=== PATIENT | female | born 1975 | race Caucasian/White ===

== ENCOUNTER 2016-08-15 18:54 | Emergency (ER) | payer OTHER ==
[~2016-08-15] VITALS: Ht 167.6 cm; Wt 86.4 kg
[~2016-08-15 18:54] MED LIST: ACCUPRIL10 M1 PO; ASPIRIN 81M81 MG/TA2 PO; ATIVAN 0.50.5 MG/TAB PO; B COMPLEX #11 TA1 PO; CLEOCIN HC150 MG/CAP PO; COLACE 100100 MG/CAP PO; CRANBERRY FRUI405 MG PO; DOXYCYCLINE 10100 MG PO; FAT ABSORB1 CAP PO; FIBER0.52 GM PO; FLEXERIL 1010 MG/TAB PO; HEXAVITAMIN1 TA1 PO; LEVAQUIN 5500 MG/TA1 PO; MOTRIN 800800 MG/TAB PO; MULTIPLE VITAMI1 CAP PO; MULTIVITAMIN FO1 CAP PO; NAPROSYN500 MG PO; NATURAL ST. JO300 MG PO; NO HOME MEDICATIONS; NORCO 325 MG-51 TAB PO; PERCOCET 325 MG1 TA2 PO; PHARMASSURE CHE30 MG PO; PHENERGAN 25 TA25 MG PO; PHENERGAN W/CO120 ML PO; PHENERGAN25 MG RC; PREDNISONE20 MG PO; PRINZIDE 12.5 M1 TAB; PROAIR HFA0.09 MG/AC IH; PROZAC 10MG10 MG PO; PROZAC 20MG20 MG PO; PROZAC20 MG PO; PYRIDIUM200 M1 PO; SILVADENE CREAM1 TU TP; SUPER B COMPLEX1 TA2 PO; THERAGRAN1 TA1 PO; TUSS PO; TYLENOL 325MG325 MG PO; ULTRAM 50MG TAB50 MG PO; VITAMIN D 1001000 IU PO; VITAMIN D 400400 IU PO; VTAMINC250TA; XANAX .25M0.25 MG/TA PO; XANAX 0.5MG0.5 MG PO; ZANTAC 7575 MG PO; ZANTAC15 MG/ML PO; ZITHROMAX Z PA250 MG PO; ZYRTEC5 MG PO; [UNRECOGNIZED DRUG - OTHER] PO
[2016-08-15 19:12] VITALS: TEMP 98
[2016-08-15] MEDS ORDERED: NORCO 325 MG-51 TAB PO (20:37)
[2016-08-15 20:57] VITALS: BP 181/104; PULSE 97
== END 2016-08-15 20:57 | disposition home or self-care (01) ==
LOC: COL.ER 18:54
DX: S93.691A Other sprain of right foot, initial encounter (principal); X50.1XXA Overexertion from prolonged static or awkward postures, initial encounter; Y92.39 Other specified sports and athletic area as the place of occurrence of the external cause; I10 Essential (primary) hypertension

== ENCOUNTER 2016-09-12 14:34 | Emergency (ER) | payer OTHER ==
[~2016-09-12] VITALS: Ht 167.6 cm; Wt 87.7 kg
[2016-09-12 14:44] VITALS: BP 184/101; PULSE 94; TEMP 98.5
== END 2016-09-12 16:00 | disposition home or self-care (01) ==
LOC: COL.ER 14:34
DX: S61.211A Laceration without foreign body of left index finger without damage to nail, initial encounter (principal); W22.8XXA Striking against or struck by other objects, initial encounter; Y92.89 Other specified places as the place of occurrence of the external cause

== ENCOUNTER → 2017-01-24 | Outpatient (CLI) | payer OTHER ==
[2017-01-12 16:38] LABS: BASO % 0.3 % (0.0-2.0); EOS # 0.2 (0.0-0.7); EOS % 1.1 % (0-4.0); GRAN # 11.6 (1.4-6.5); GRAN % 76.6 % (42.2-75.2); HEMATOCRIT 44.2 % (37.0-47.0); HEMOGLOBIN 15.2 g/dl (12.5-16.0); LYMPH # 2.5 (1.2-3.4); LYMPH % 16.5 % (20.0-51.0); MEAN CELL VOLUME 93 fl (80.0-100.0); MEAN CORPUSCULAR HEMOGLOBIN 32 pg (27.0-31.0); MEAN CORPUSCULAR HGB CONC 34 g/dl (33.0-37.0); MEAN PLATELET VOLUME 11.6 fl (7.4-10.4); MONO # 0.8 (0.1-0.6); MONO % 5.1 % (1.7-9.3); PLATELET COUNT 296 K/mm3 (130-400); RED BLOOD COUNT 4.76 M/mm3 (4.10-5.30); WHITE BLOOD COUNT 15.1 K/mm3 (4.8-10.8)
[2017-01-12 16:43] LABS: ADJUSTED CALCIUM 9.4 mg/dL (8.4-10.2); ALBUMIN 4.5 gm/dL (3.5-5.0); BILIRUBIN,TOTAL 0.5 mg/dL (0.0-1.0); CALCIUM 9.8 mg/dL (8.4-10.2); CREATININE, serum 0.65 mg/dL (0.52-1.25); POTASSIUM 3.8 mmol/L (3.4-5.0); TOTAL PROTEIN 7.7 gm/dL (6.4-8.2)
== END ==
LOC: COL.LAB 01-12 10:01
PROVIDERS: Family Medicine
DX: E66.3 Overweight (principal); I10 Essential (primary) hypertension

== ENCOUNTER 2017-03-11 18:45 | Emergency (ER) | payer OTHER ==
[~2017-03-11] VITALS: Ht 167.6 cm; Wt 81.4 kg
[~2017-03-11 18:45] MED LIST changes: +CLINDAMYCIN150 MG PO; +NATURAL MAGNES200 MG PO; +NORCO 325 MG-7.1 TAB PO; +PERIDEX (CHLOR480 ML MM; +PRINZIDE 25 MG-1 TAB PO; +PROBIOTIC FORMU1 CAP PO; +ZYRTEC 10MG10 MG PO
[2017-03-11 19:00] VITALS: BP 134/88; TEMP 98.3
[2017-03-11 20:06] VITALS: PULSE 79
== END 2017-03-11 20:07 | disposition home or self-care (01) ==
LOC: COL.ER 18:45
DX: S50.01XA Contusion of right elbow, initial encounter (principal); Z79.82 Long term (current) use of aspirin; W22.09XA Striking against other stationary object, initial encounter; Y92.009 Unspecified place in unspecified non-institutional (private) residence as the place of occurrence of the external cause

== ENCOUNTER 2017-05-20 18:49 | Emergency (ER) | payer OTHER ==
[~2017-05-20] VITALS: Ht 167.6 cm; Wt 84.1 kg
[2017-05-20 18:52] VITALS: TEMP 97.8
[2017-05-20] MEDS ORDERED: CLEOCIN HC150 MG/CAP PO (19:58)
[2017-05-20] MEDS ORDERED: NORCO 325 MG-51 TAB PO (20:01)
[2017-05-20 20:13] VITALS: BP 159/104; PULSE 104
[2017-05-21] MEDS ORDERED: NORCO 325 MG-51 TAB PO (17:44)
== END 2017-05-20 20:19 | disposition home or self-care (01) ==
LOC: COL.ER 18:49
DX: S02.5XXA Fracture of tooth (traumatic), initial encounter for closed fracture (principal); K04.7 Periapical abscess without sinus; I10 Essential (primary) hypertension; K21.9 Gastro-esophageal reflux disease without esophagitis; F41.9 Anxiety disorder, unspecified; F17.210 Nicotine dependence, cigarettes, uncomplicated; Z79.82 Long term (current) use of aspirin; X58.XXXA Exposure to other specified factors, initial encounter

== ENCOUNTER 2017-05-21 16:44 | Emergency (ER) | payer OTHER ==
[~2017-05-21] VITALS: Ht 167.6 cm; Wt 84.1 kg
[2017-05-21 16:55] VITALS: TEMP 98.2
[2017-05-21] MEDS ORDERED: NORCO 325 MG-51 TAB PO (17:44)
[2017-05-21 17:55] VITALS: BP 154/92; PULSE 88
== END 2017-05-21 17:55 | disposition home or self-care (01) ==
LOC: COL.ER 16:44
DX: K02.9 Dental caries, unspecified (principal); K04.7 Periapical abscess without sinus; G89.29 Other chronic pain; M54.9 Dorsalgia, unspecified; F17.210 Nicotine dependence, cigarettes, uncomplicated

== ENCOUNTER 2017-09-11 10:01 | Emergency (ER) | payer OTHER ==
[~2017-09-11] VITALS: Ht 167.6 cm; Wt 83.6 kg
[2017-09-11 10:06] VITALS: TEMP 98.1
[2017-09-11 12:14] VITALS: BP 120/91; PULSE 89
== END 2017-09-11 12:17 | disposition home or self-care (01) ==
LOC: COL.ER 10:01
DX: S93.115A Dislocation of interphalangeal joint of left lesser toe(s), initial encounter (principal); Z98.51 Tubal ligation status; Z88.0 Allergy status to penicillin; Z88.2 Allergy status to sulfonamides; Z79.82 Long term (current) use of aspirin; W01.0XXA Fall on same level from slipping, tripping and stumbling without subsequent striking against object, initial encounter

== ENCOUNTER 2018-10-15 10:23 | Emergency (ER) | payer OTHER ==
[~2018-10-15] VITALS: Ht 167.6 cm; Wt 90.9 kg
[2018-10-15 10:29] VITALS: BP 127/74; PULSE 97; TEMP 97.9
[2018-10-15] MEDS ORDERED: NORCO 325 MG-7.1 TAB PO (10:50)
[2018-10-15] MEDS ORDERED: VITAMIN C500 MG PO (10:51)
[2018-10-15] MEDS ORDERED: ATIVAN 0.50.5 MG/TAB PO (10:51)
[2018-10-15] MEDS ORDERED: CLARITIN 1010 MG/TAB PO (10:51)
== END 2018-10-15 11:14 | disposition home or self-care (01) ==
LOC: COL.ER 10:23
DX: T81.89XA Other complications of procedures, not elsewhere classified, initial encounter (principal); Z98.51 Tubal ligation status

== ENCOUNTER 2018-12-16 09:02 | Emergency (ER) | payer OTHER ==
[~2018-12-16] VITALS: Ht 167.6 cm; Wt 92.3 kg
[~2018-12-16 09:02] MED LIST changes: +CLARITIN 1010 MG/TAB PO; +VITAMIN C500 MG PO
[2018-12-16 09:07] VITALS: BP 160/90; TEMP 97.5
[2018-12-16 09:25] LABS: COLLECTION METHOD CLEAN CATCH
[2018-12-16 09:30] LABS: PH 7 (5-8); SQUAMOUS EPITHELIAL 0-2 /hpf; URINE APPEARANCE Clear; URINE BACTERIA Rare /hpf; URINE BILIRUBIN Negative (NEGATIVE); URINE BLOOD Negative (NEGATIVE); URINE COLOR Colorless; URINE GLUCOSE Negative (NEGATIVE); URINE KETONE Negative (NEGATIVE); URINE LEUKOCYTE ESTERASE Negative (NEGATIVE); URINE NITRATE Negative (NEGATIVE); URINE PROTEIN(semi-quant) Negative (NEGATIVE); URINE RBC 0-2 /hpf; URINE UROBILINOGEN Negative (NEGATIVE)
[2018-12-16 10:09] LABS: BASO % 0.4 % (0.0-2.0); EOS # 0.2 (0.0-0.7); EOS % 3.8 % (0-4.0); GRAN # 3.1 (1.4-6.5); GRAN % 55.1 % (42.2-75.2); HEMOGLOBIN 13.7 g/dl (12.5-16.0); LYMPH # 1.9 (1.2-3.4); LYMPH % 33.2 % (20.0-51.0); MEAN CELL VOLUME 94 fl (80.0-100.0); MEAN CORPUSCULAR HEMOGLOBIN 32 pg (27.0-31.0); MEAN CORPUSCULAR HGB CONC 34 g/dl (33.0-37.0); MEAN PLATELET VOLUME 10.5 fl (7.4-10.4); MONO # 0.4 (0.1-0.6); MONO % 7.3 % (1.7-9.3); PLATELET COUNT 255 K/mm3 (130-400); RED BLOOD COUNT 4.25 M/mm3 (4.10-5.30); REDCELL DISTRIBUTION WIDTH-CV 12.7 % (11.5-14.5)
[2018-12-16 10:37] LABS: ALANINE AMINOTRANSFERASE 24 U/L (9-52); ALBUMIN 4.2 gm/dL (3.5-5.0); ALKALINE PHOSPHATASE 80 U/L (50-136); ANION GAP 10 mmol/L (7-16); AST,SGOT 43 U/L (15-37); BILIRUBIN,TOTAL 0.5 mg/dL (0.0-1.0); BLOOD UREA NITROGEN 11 mg/dL (7-17); CALCIUM 8.9 mg/dL (8.4-10.2); CARBON DIOXIDE 26 mmol/L (22-30); CHLORIDE 105 mmol/L (98-107); CREATININE, serum 0.66 (0.52-1.25); GLUCOSE 103 mg/dL (74-106); POTASSIUM 3.9 mmol/L (3.4-5.0); SODIUM 141 mmol/L (137-145); TOTAL PROTEIN 7.2 gm/dL (6.4-8.2)
[2018-12-16] MEDS ORDERED: NORCO 325 MG-51 TAB PO (11:30)
[2018-12-16 12:04] LABS: LIPASE 38 U/L (23-300)
[2018-12-16 12:06] LABS: C-REACTIVE PROTEIN < 0.5 mg/dL (0.0-0.9)
[2018-12-16 12:28] VITALS: PULSE 69
== END 2018-12-16 12:28 | disposition home or self-care (01) ==
LOC: COL.ER 09:02
PROVIDERS: Family Medicine
DX: R10.9 Unspecified abdominal pain (principal); Z90.89 Acquired absence of other organs; Z90.49 Acquired absence of other specified parts of digestive tract; Z98.890 Other specified postprocedural states
CPT/HCPCS: J1885; J2405; J7030

== ENCOUNTER → 2019-02-06 | Outpatient (CLI) | payer MEDICAID | LOC: ZCOL.LAB 17:42 | DX: J02.9 Acute pharyngitis, unspecified (principal) ==

== ENCOUNTER → 2019-02-09 | Outpatient (CLI) | payer MEDICAID | LOC: COL.RAD 11:22 | DX: R05 Cough (principal) ==

== ENCOUNTER 2019-04-19 13:16 | Emergency (ER) | payer MEDICAID ==
[~2019-04-19] VITALS: Ht 167.6 cm; Wt 90.9 kg
[2019-04-19 13:42] VITALS: BP 170/91; TEMP 97.3
[2019-04-19 16:50] VITALS: PULSE 76
== END 2019-04-19 16:50 | disposition home or self-care (01) ==
LOC: COL.ER 13:16
DX: J11.1 Influenza due to unidentified influenza virus with other respiratory manifestations (principal); I10 Essential (primary) hypertension; F41.9 Anxiety disorder, unspecified; F32.9 Major depressive disorder, single episode, unspecified; F17.210 Nicotine dependence, cigarettes, uncomplicated; M54.9 Dorsalgia, unspecified; G89.29 Other chronic pain; Z20.828 Contact with and (suspected) exposure to other viral communicable diseases

== ENCOUNTER → 2019-05-01 | Outpatient (CLI) | payer MEDICAID | LOC: COL.RAD 09:56 | DX: M51.34 Other intervertebral disc degeneration, thoracic region (principal) ==

== ENCOUNTER 2020-12-13 11:29 | Emergency (ER) | payer SELFPAY ==
[~2020-12-13] VITALS: Ht 167.6 cm; Wt 94.1 kg
[2020-12-13 11:44] VITALS: BP 157/98; TEMP 98.2
[2020-12-13] MEDS ORDERED: NORCO 325 MG-51 TAB PO (13:44)
[2020-12-13 13:51] VITALS: PULSE 94
== END 2020-12-13 13:52 | disposition home or self-care (01) ==
LOC: COL.ER 11:29
DX: M25.512 Pain in left shoulder (principal); I10 Essential (primary) hypertension; F17.210 Nicotine dependence, cigarettes, uncomplicated; Z88.5 Allergy status to narcotic agent; Z79.899 Other long term (current) drug therapy
CPT/HCPCS: J1885; J2360

== ENCOUNTER 2023-02-18 07:43 | Emergency (ER) | payer SELFPAY ==
[~2023-02-18] VITALS: Ht 167.6 cm; Wt 88.6 kg
[2023-02-18 07:52] VITALS: TEMP 97.7
[2023-02-18 08:12] LABS: BASO % 0.2 % (0.0-2.0); EOS # 0.1 K/mm3 (0.0-0.7); EOS % 0.6 % (0.0-4.0); GRAN # 12.5 K/mm3 (1.4-6.5); GRAN % 86.8 % (42.2-75.2); HEMATOCRIT 49.2 % (37.0-47.0); HEMOGLOBIN 17.5 g/dl (12.5-16.0); LYMPH # 1.1 K/mm3 (1.2-3.4); LYMPH % 7.9 % (20.0-51.0); MEAN CELL VOLUME 91 fl (80.0-100.0); MEAN CORPUSCULAR HEMOGLOBIN 32 pg (27-31); MEAN CORPUSCULAR HGB CONC 36 g/dl (33.0-37.0); MEAN PLATELET VOLUME 10.5 fl (7.4-10.4); MONO # 0.6 K/mm3 (0.1-0.6); PLATELET COUNT 362 K/mm3 (130-400); RED BLOOD COUNT 5.41 M/mm3 (4.10-5.30); REDCELL DISTRIBUTION WIDTH-CV 12.1 % (11.5-14.5)
[2023-02-18 08:49] LABS: ALBUMIN 4.3 gm/dL (3.5-5.0); BILIRUBIN,TOTAL 0.6 mg/dL (0.2-1.2); C-REACTIVE PROTEIN 0.63 mg/dL (0.00-0.50); CALCIUM 10.2 mg/dL (8.4-10.2); CREATININE, serum 0.82 mg/dL (0.57-1.11); MAGNESIUM 2.3 mg/dL (1.6-2.6); TOTAL PROTEIN 8.1 gm/dL (6.2-8.1)
[2023-02-18 09:09] LABS: COLLECTION METHOD CLEAN CATCH
[2023-02-18 09:32] LABS: URINE APPEARANCE Clear (CLEAR/HAZY); URINE COLOR Yellow (YELLOW)
[2023-02-18 09:33] LABS: PH 6.5 (5.0-8.5); URINE BLOOD TRACE-LYSED (NEGATIVE); URINE GLUCOSE Negative (NEGATIVE); URINE KETONE 1+ (NEGATIVE); URINE NITRATE Negative (NEGATIVE); URINE PROTEIN(semi-quant) Negative (NEGATIVE); URINE RBC 0-2 /hpf (0-2); URINE UROBILINOGEN 0.2 E.U/dL (0.2-1.0)
[2023-02-18] MEDS ORDERED: LEVSIN 0.10.125 MG/T PO (10:10)
[2023-02-18 10:43] VITALS: BP 121/83; PULSE 94
[2023-02-21] MEDS ORDERED: PROMETHAZINE12.5 M5 PO (16:38)
== END 2023-02-18 10:43 | disposition home or self-care (01) ==
LOC: COL.ER 07:43
PROVIDERS: Emergency Medicine
DX: R11.2 Nausea with vomiting, unspecified (principal); R10.84 Generalized abdominal pain; R19.7 Diarrhea, unspecified; F17.210 Nicotine dependence, cigarettes, uncomplicated
CPT/HCPCS: J2405; J3010; J7030; J7040

== ENCOUNTER 2023-11-30 23:31 | Emergency (ER) | payer SELFPAY ==
[~2023-11-30] VITALS: Ht 167.6 cm; Wt 95.0 kg
[~2023-11-30 23:31] MED LIST changes: +ALINIA500 MG PO; +LEVSIN 0.10.125 MG/T PO; +PROMETHAZINE12.5 M5 PO
[2023-11-30 23:44] VITALS: TEMP 97.8
[2023-11-30] MEDS ORDERED: Ketorolac 15 MG/ML VIAL IV ONE (23:45)
[2023-12-01] MEDS ORDERED: NS 1,000 ML IV ONE (00:15)
[2023-12-01 00:19] LABS: COLLECTION METHOD CLEAN CATCH
[2023-12-01 00:23] LABS: BASO # 0.1 K/mm3 (0.0-0.2); BASO % 0.4 % (0.0-2.0); EOS # 0.3 K/mm3 (0.0-0.7); EOS % 2.3 % (0.0-4.0); GRAN # 6.3 K/mm3 (1.4-6.5); GRAN % 51.6 % (42.2-75.2); HEMATOCRIT 41.4 % (37.0-47.0); HEMOGLOBIN 14.2 g/dl (12.5-16.0); LYMPH # 4.6 K/mm3 (1.2-3.4); LYMPH % 38.2 % (20.0-51.0); MEAN CELL VOLUME 95 fl (80.0-100.0); MEAN CORPUSCULAR HEMOGLOBIN 33 pg (27-31); MEAN CORPUSCULAR HGB CONC 34 g/dl (33.0-37.0); MEAN PLATELET VOLUME 10.4 fl (7.4-10.4); MONO # 0.8 K/mm3 (0.1-0.6); MONO % 6.8 % (1.7-9.3); PLATELET COUNT 348 K/mm3 (130-400); RED BLOOD COUNT 4.37 M/mm3 (4.10-5.30); REDCELL DISTRIBUTION WIDTH-CV 12.8 % (11.5-14.5)
[2023-12-01 00:31] LABS: PH 7.5 (5.0-8.5); URINE APPEARANCE CLEAR (CLEAR/HAZY); URINE BLOOD NEGATIVE (NEGATIVE); URINE COLOR YELLOW (YELLOW); URINE GLUCOSE NEGATIVE (NEGATIVE); URINE KETONE NEGATIVE (NEGATIVE); URINE NITRATE NEGATIVE (NEGATIVE); URINE PROTEIN(semi-quant) NEGATIVE (NEGATIVE); URINE UROBILINOGEN 0.2 E.U/dL (0.2-1.0)
[2023-12-01 00:41] LABS: ALBUMIN 4.2 g/dL (3.5-5.0); BILIRUBIN,TOTAL 0.3 mg/dL (0.2-1.2); CALCIUM 10.4 mg/dL (8.4-10.2); CREATININE, serum 0.82 mg/dL (0.57-1.11); POTASSIUM 3.8 mEq/L (3.5-4.5); TOTAL PROTEIN 7.6 g/dl (6.2-8.1)
[2023-12-01] MEDS ORDERED: Morphine 4 MG/ML VIAL IV ONE (01:00)
[2023-12-01] MEDS ORDERED: Iohexol 300 - 100 ML VIAL IV ONE (01:07)
[2023-12-01] MEDS ORDERED: NS 50 ML IV ONE (01:08)
[2023-12-01 02:25] VITALS: BP 108/61; PULSE 78
== END 2023-12-01 02:25 | disposition home or self-care (01) ==
LOC: COL.ER 23:31
PROVIDERS: Physician Assistant
DX: M54.50 Low back pain, unspecified (principal); Z87.442 Personal history of urinary calculi
CPT/HCPCS: J1885; J2270; J7030; Q9967